=== PATIENT | female | born 1995 | race Caucasian/White ===

== ENCOUNTER 2017-10-13 18:37 | Emergency (ER) | payer SELFPAY ==
[2017-10-13 18:43] VITALS: BMI 31.8
[2017-10-13] MEDS ORDERED: TORADOL 30 MG VIAL IVP ONE (19:20)
[2017-10-13] MEDS ORDERED: NS 1000 ML 1,000 ML IV ONE (19:21)
[2017-10-13] MEDS ORDERED: ZOFRAN INJ 4 MG VIAL IVP ONE (19:21)
[2017-10-13] MEDS ORDERED: TORADOL 30 MG VIAL ONE (19:23)
[2017-10-13] MEDS ORDERED: ZOFRAN INJ 4 MG VIAL ONE (19:23)
[2017-10-13] MEDS ORDERED: NS 1000 ML 1,000 ML ONE (19:23)
--- NOTE | 2017-10-13 19:26 | DR.NAUSEAF ---
HPI - Time Seen Time seen: 19:20 - Primary Care Physician Primary Care Physician: NFD - Complaints Chief Complaint Doctors Comments: Jose martins presented to the ED for evaluation sore throat and generalized body aches of two days duration. She admits to bilious vomiting x 1 and diarrheal stools Chief Complaint:: PT C/O OF TUESDAY NIGHT SORE THROAT PUSS POCKETS ON HER THROAT AND NO APPETETITE, VOMITTING UP BILE AND LOOSE BM'S. .. Self Treatment fo Chief Complaint: PT C/O HURTING ALL OVER . - Source History Provided: Patient - Mode of Arrival Mode of Arrival: Ambulatory - Timing Onset of Chief Complaint: 10/11/17 PMH - PMH Past Medical History: No Past Surgical History: Yes Past Surgical History Comment: KINCKED BOWELS AT AGE 11.. - Family History History of Family Medical Conditions: No - Social History Does patient currently use any type of tobacco product: No Have you used tobacco products in the last 12 months: No Type of Tobacco Use: None Does any household member use tobacco: No Alcohol Use: None Do you use any recreational Drugs:: No Lives With: Friend Lives Where: Home - infectious screening In the last 2 months have you had wt loss of >10#?: NO Have you had fever, night sweats or hemotysis?: No Have you traveled outside the country in the last 6 months?: No Isolation: Standard ROS - Review of Systems Eyes: No Symptoms Reported ENTM: No Symptoms Reported Respiratoy: No Symptoms Reported Cardiovascular: No Symptoms Reported Gastrointestinal/Abdominal: No Symptoms Reported Genitourinary: No Symptoms Reported Neurological: No Symptoms Reported Musculoskeletal: No Symptoms Reported Integumentary: No Symptoms Reported Hematologic/Lymphatic: No Symptoms Reported Endocrine: No Symptoms Reported Psychiatric: No Symptoms Reported All Other Systems: Reviewed and Negative PE - Vital Signs Vitals: Temperature 98.2 F Pulse Rate 95 Respiratory Rate 20 Blood Pressure 157/84 O2 Sat by Pulse Oximetry 99 - General Limitations: No Limitations General Appearance: Alert, In No Apparent Distress - Head Head Exam: Normal Inspection, Atraumatic - Eyes Eye exam: Normal Appearance, PERRL, EOMI - ENT ENT Exam: Normal Exam - Neck Neck Exam: Normal Inspection, Full ROM - Chest Chest Inspection: Normal Inspection - Respiratory Respiratory Exam: Normal Lung Sounds Bilat Respiratory Exam: Bilateral Clear to Auscultation - Cardiovascular Cardiovascular Exam: Regular Rate, Normal Rhythm - Abdominal Exam Abdominal Exam: Normal Inspection, Normal Bowel Sounds Abdominal Tenderness: negative: RUQ, RLQ, LUQ, LLQ, Epigastrium, Suprapubic, Diffuse, Mild, Moderate, Severe, Other - Rectal Rectal Exam: Deferred - External Exam: Female: Deferred : Speculum Exam (Female): Deferred : Bimanual Exam (female): Deferred - Extremities Extremities Exam: Normal Inspection, Full ROM - Back Back Exam: Normal Inspection, Full ROM - Neurologic Neurological Exam: Alert, Oriented X3, CN II-XII Intact - Psychiatric Psychiatric Exam: Normal Affect, Normal Mood - Skin Skin Exam: Warm, Dry, Intact ROR - Labs Reviewed Laboratory Results Reviewed?: Yes (influenza negative, strep negative) Laboratory: Influenza Type A (PCR) Negative (NEGATIVE) 10/13/17 18:57 Influenza Type B (PCR) Negative (NEGATIVE) 10/13/17 18:57 S. pyogenes (TEM-PCR) Not detected (NOT DETECT) 10/13/17 18:57 - Diagnosis Discharge Problem: Influenza-like illness - Discharge Plan Condition: Stable - Follow ups/Referrals Follow ups/Referrals: NFD,None [Primary Care Provider] - 3 days - Instructions
[2017-10-13 20:38] VITALS: BP 127/92
== END 2017-10-13 20:30 | disposition home or self-care (01) ==
LOC: ER 18:47
DX: J06.9 Acute upper respiratory infection, unspecified (principal); R52 Pain, unspecified; R11.10 Vomiting, unspecified
CPT/HCPCS: 87502; 87651; 96365; 96367; 96374; 96375; 99283; A4222; J1885; J2405